=== PATIENT | male | born 1945 | race Caucasian/White ===

== ENCOUNTER 2023-09-23 08:46 | Emergency (ER) | payer BC ==
[~2023-09-23] VITALS: Ht 167.6 cm; Wt 97.1 kg
[2023-09-23 09:03] VITALS: TEMP 97.1
[2023-09-23] MEDS ORDERED: LOSA100T58 PO (11:17)
[2023-09-23] MEDS ORDERED: OMEG1CAP16 (11:18)
[2023-09-23] MEDS ORDERED: METO25TA6 PO (11:19)
[2023-09-23] MEDS ORDERED: AMLO10TA PO (11:19)
[2023-09-23] MEDS ORDERED: CETI10TA19 PO (11:20)
[2023-09-23] MEDS ORDERED: GEMF600T90 PO (11:20)
[2023-09-23] MEDS ORDERED: ASPI-611 PO (11:21)
[2023-09-23] MEDS ORDERED: MULT-1249 PO (11:21)
[2023-09-23] MEDS: cloNIDine 0.1 mg tablet PO ONE (12:24)
[2023-09-23 13:41] VITALS: PULSE 62
[2023-09-23 13:48] VITALS: BP 163/78; RESP 14; O2SAT 92
== END 2023-09-23 13:51 | disposition home or self-care (01) ==
LOC: ER 08:46
DX: I10 Essential (primary) hypertension (principal); Z79.899 Other long term (current) drug therapy; Z79.82 Long term (current) use of aspirin
CPT/HCPCS: 99285